=== PATIENT | male | born 1955 | race Caucasian/White ===

== ENCOUNTER 2020-08-09 09:42 | Emergency (ER) | payer BC ==
[2020-08-09 09:48] VITALS: BP 160/97; PULSE 98; TEMP 99; BMI 27.8
[2020-08-09 10:51] LABS: EPITHELIAL CELLS FEW /hpf; URINE HYALINE CAST 0-2 /lpf; URINE MUCUS 1+
[2020-08-09] MEDS ORDERED: oxyCODONE HCL 5 MG TABLET PO ONE (11:13)
[2020-08-09] MEDS ORDERED: oxyCODONE HCL 5 MG TABLET ONE (11:17)
== END 2020-08-09 11:30 | disposition home or self-care (01) ==
LOC: FER 09:42
DX: S22.41XA Multiple fractures of ribs, right side, initial encounter for closed fracture (principal); W01.0XXA Fall on same level from slipping, tripping and stumbling without subsequent striking against object, initial encounter
CPT/HCPCS: 71046-TC-FY; 71111-TC-FY; 81003; 81015; 99284-25